=== PATIENT | female | born 1960 | race Caucasian/White ===

== ENCOUNTER 2023-09-30 16:42 | Emergency (ER) | payer OTHER, SELFPAY ==
[2023-09-30 16:47] VITALS: BP 135/86
--- NOTE | 2023-09-30 18:17 | ED.GENMED ---
History of Present Illness
General
Chief Complaint: Dizziness
Source: patient
Time Seen by Provider: 09/30/23 18:05
Travel History
Have you had any contact with someone who has COVID-19?: No
Do you have any symptoms of coronavirus? Fever > 100 degrees, chills, cough, shortness of breath, sore throat, loss of taste or smell, muscle aches, or headache?: No
History of Present Illness
History of Present Illness:
63-year-old female with past medical history of hyperlipidemia presenting to the emergency department for evaluation after over the weekend she had a bout of GI symptoms including nausea vomiting and diarrhea, following an episode of vomiting
patient attempted to get up out of bed and fell striking the back of her head on her bed frame/nightstand. Patient states since that time she has had intermittent vertiginous symptoms, headache and feeling off. Patient states she was concerned for
possible head injury/concussion which is why she came into the ER today. This injury occurred on Thursday and has had persistent symptoms since. Denies any vomiting since head injury, loss consciousness, vision changes, focal weakness/numbness or
any other concerns presently. Patient also denies any use of anticoagulants.
Past History
Past History
ED Past Medical History: Hypercholesterolemia, Psychiatric, Other (Irritable bowel disease) and Other (agree with documented pmhx)
ED Past Surgical History: Cholecystectomy, Urological (bladder mesh sling) and Other (agree with documented pshx)
Social History
Tobacco: Smoker
Alcohol: Occasional
Drug: None
Personal:
Living: with family
Employment: Employed
Family History
Family History: Diabetes and CAD
Review of Systems
Review of Systems
All Other Systems: ROS reviewed and negative except as documented in HPI and ROS
Phy Exam
Physical Exam
Physical Exam:
GENERAL: Alert , in no apparent distress
EYE: conjunctiva clear, pupils 3 mm bilateral, EOMI, no nystagmus or strabismus, no orbital ecchymosis
Head: Normocephalic atraumatic
NECK: Supple, no midline tenderness
ENT: mmm.
LUNGS: no acute respiratory distress
NEUROLOGICAL: Alert and oriented x 3, ambulates with steady gait
SKIN: Warm and dry, skin intact.
MUSCULOSKELETAL: well perfused.
PSYCH: Normal and appropriate interaction.
Scores
Heart Failure Risk
Heart Failure Risk Score: Not Applicable
Heart Score for Chest Pain Patients
STEMI patient?: Not applicable
Withdrawal Assessment of Alcohol
Withdrawal Assessment Completed?: Not applicable
Course
Vital Signs
Initial and Last Documented VS:
Initial Vital Signs
Temp Pulse Resp Pulse Ox
98.1 F 88 16 98
09/30/23 16:45 09/30/23 16:45 09/30/23 16:45 09/30/23 16:45
Last Documented Vital Signs
Temp Pulse Resp BP Pulse Ox
98.1 F 88 16 135/86 98
09/30/23 16:45 09/30/23 16:45 09/30/23 16:45 09/30/23 16:47 09/30/23 16:45
MDM/Problems Addressed
Differential Diagnosis Includes:
Concussion, intracranial bleeding, calvarial fracture, minor head injury, labyrinthitis
MDM/Problems Addressed:
63-year-old female presenting the emergency department for evaluation following minor head injury from Thursday evening. She has since had some intermittent vertigo, headache her symptoms are most likely related to concussion. Certainly with the
vertigo in the setting of recent viral illness labyrinthitis is possible as well. We discussed risk first benefit of CT imaging for intracranial bleeding/calvarial fracture given the mechanism and symptoms over the following 48 hours patient felt
comfortable foregoing head CT. Advised on concussion management as well as outpatient follow-up recommendations. Patient is aware of return precautions to the emergency department. Stable for discharge home.
*Pulse Oximetry
Patient hypoxic: no
*Critical Care Note
Total Time (30-74mins, 75-104mins- exclusive of procedures): Not Applicable
ED Attending Note
-
Portions of this chart may have been created with voice recognition software.� Occasional wrong word or��sound alike� substitutions may have occurred due to the inherent limitations of voice recognition software.
Discharge Plan
Departure
Patient Disposition: Home (Routine Discharge)
Date of Disposition: 09/30/23
Time of Disposition: 18:18
Patient with high blood pressure during this ER visit?: No
Discharge Problem:
Head injury, Dizziness
Instructions: Concussion, Adult (DC)
Prescriptions:
New
meclizine 25 mg tablet
25 mg PO BID PRN (Reason: dizziness) Qty: 10 0RF
No Action
quetiapine 25 MG tablet
50 mg PO HS
lamotrigine [Lamictal] 150 MG tablet
300 mg PO HS
simvastatin 20 MG tablet
20 mg PO HS
oxybutynin chloride 5 MG tablet
5 mg PO HS
metronidazole 500 MG tablet
500 mg PO TID Qty: 29 0RF
levofloxacin 500 MG tablet
500 mg PO DAILY Qty: 9 0RF
acetaminophen-codeine 1 TABLET tablet
1 tab PO Q4HPRN PRN (Reason: pain) Qty: 20 0RF
Interventions
Interventions:
*Risk Screen - Suicide Last Done: 09/30/23 16:45
*General Assessment Last Done: 09/30/23 16:45
*Neglect/Abuse Screening Last Done: 09/30/23 16:45
ED- Fall Risk Assessment Last Done: 09/30/23 17:38
*ED COVID-19 Vaccine History Last Done: 09/30/23 17:38
*Nursing Disposition Last Done: 09/30/23 18:40
ED- Neurological Assessment Last Done: 09/30/23 17:38
ED Swallowing Screen Last Done: 09/30/23 17:38
Discharge Date and Time
Discharge Date/Time: 09/30/23 18:41
Print Language: CONGOLESE
== END 2023-09-30 18:41 | disposition home or self-care (01) ==
LOC: EMR 16:42
PROVIDERS: EMERGENCY PHYSICIAN Emergency Medicine; FAMILY PHYSICIAN Family Medicine
DX: S09.90XA Unspecified injury of head, initial encounter (principal); R42 Dizziness and giddiness; W22.03XA Walked into furniture, initial encounter; E78.00 Pure hypercholesterolemia, unspecified; R11.2 Nausea with vomiting, unspecified; R19.7 Diarrhea, unspecified; K58.9 Irritable bowel syndrome, unspecified; F17.200 Nicotine dependence, unspecified, uncomplicated; Z82.49 Family history of ischemic heart disease and other diseases of the circulatory system; Z83.3 Family history of diabetes mellitus; Z90.49 Acquired absence of other specified parts of digestive tract
CPT/HCPCS: 99282

== ENCOUNTER → 2024-07-29 13:51 | Outpatient (REF) | payer OTHER, SELFPAY | LOC: RCS 13:51 | PROVIDERS: ATTENDING PHYSICIAN Orthopaedic Surgery; FAMILY PHYSICIAN Family Medicine | DX: Z01.818 Encounter for other preprocedural examination (principal) | CPT/HCPCS: 93005 ==